=== PATIENT | female | born 1975 | race Two or more races ===

== ENCOUNTER 2018-03-03 21:33 | Emergency (ER) | payer SELFPAY ==
[2018-03-03] MEDS ORDERED: ACETAMINOPHEN 325 MG TABLET PO ONE (21:38)
--- NOTE | 2018-03-03 22:02 | RADIOLOGY REPORT (SQ) ---
EXAM DESCRIPTION: XR FOREARM 2 VIEWS COMPLETED DATE/TME: 03/03/2018 00:00 CLINICAL HISTORY: 42 years, Female, injury COMPARISON: EXAM DESCRIPTION: CLINICAL HISTORY: injury COMPARISON: None FINDINGS: 2 view(s) submitted. There is moderate angulation of fractures of the distal radius and ulna, which are mildly diastatic. No other fracture or dislocation. IMPRESSION: Radius and ulna fractures.. NUMBER OF VIEWS: TECHNIQUE: LIMITATIONS: None. FINDINGS: IMPRESSION: 2010 [facility] Radiology [facility]- All Rights Reserved
[2018-03-03] MEDS ORDERED: MORPHINE SULFATE 10 MG/ML INJ IV PRN (22:10)
[2018-03-03] MEDS ORDERED: PROPOFOL INJ 200 MG/20 ML VIAL IV ONE ×2 (22:10→23:48)
[2018-03-03] MEDS ORDERED: ONDANSETRON HCL INJ/PF 4 MG/2 ML SDV IV ONE (22:10)
[2018-03-03] MEDS ORDERED: FENTANYL CITRATE INJ/PF 100 MCG/2 ML AMPUL IV PRN (22:31)
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
[2018-03-03] MEDS ORDERED: KETAMINE HCL INJ 500 MG/10 ML VIAL ONE (23:31)
[2018-03-03] MEDS ORDERED: PROPOFOL 0 MG/0 ML INFUS..BTL IV ONE (23:31)
[2018-03-04] MEDS ORDERED: CEFAZOLIN 2 GM/D5W RTU 2 GM/50 ML RTUPB IV ONE
[2018-03-04] MEDS ORDERED: ONDANSETRON ODT 4 MG TAB (6 TAB/ER DISP) PO PRN (00:24)
[2018-03-04] MEDS ORDERED: HYDROCODONE/ACETAMINOPHEN 5-325 MG (6 TAB/ER DISP) PO PRN (00:24)
[2018-03-04 03:31] VITALS: BP 126/96
--- NOTE | 2018-03-04 08:02 | RADIOLOGY REPORT (SQ) ---
EXAM DESCRIPTION: FOREARM LEFT COMPLETED DATE/TIME: 03/04/2018 12:15 am REASON FOR STUDY: CR LT FOREARM COMPARISON: 03/03/2018 FLUOROSCOPY TIME: 90 seconds 5 images saved to PACS. TECHNIQUE: Intra-operative images acquired during surgical procedure to evaluate progress. NUMBER OF IMAGES: 5 image LIMITATIONS: None. FINDINGS: Fluoroscopic images were obtained during reduction of fractures of the distal ulna and rad ius. The final films obtained demonstrate an overlying cast. IMPRESSION: IMAGE(S) OBTAINED DURING PROCEDURE. COMMENT: Quality ID [id number]: Final reports for procedures using fluoroscopy that document radiation exp osure indices, or exposure time and number of fluorographic images (if radiation exposure indices are not available) Please consult full operative report of the attending physician for description of the procedure. TECHNICAL DOCUMENTATION: JOB ID: [id number] [employer]- All Rights Reserved Reading location - IP/workstation name: [email or web address]
--- NOTE | 2018-03-04 08:02 | RADIOLOGY REPORT (SQ) ---
EXAM DESCRIPTION: NO CHG FLUORO COMPLETE DATE/TIME: 03/04/2018 12:15 am REASON FOR STUDY: CR LT FOREARM FINDINGS: Please see combined report for performance of procedure and radiologic supervision and int erpretation. IMPRESSION: Please see combined report for performance of procedure and radiologic supervision and i nterpretation. Reading location - IP/workstation name: [email or web address]
== END 2018-03-04 03:34 | disposition home or self-care (01) ==
LOC: ER 21:33
PROC: 0PSJXZZ Reposition Left Radius, External Approach (ICD-10-PCS; principal; 2018-03-03)
PROC: 0PSLXZZ Reposition Left Ulna, External Approach (ICD-10-PCS; 2018-03-03)
DX: S52.92XA Unspecified fracture of left forearm, initial encounter for closed fracture (principal); Y04.8XXA Assault by other bodily force, initial encounter
CPT/HCPCS: 99284; 99152; 73090 ×2; 25565; J3010; J3490; J2405; J2704; J0690

== ENCOUNTER 2018-03-04 11:55 | Day surgery (SDC) | payer SELFPAY ==
[~2018-03-04 11:55] MED LIST: SUCCINYLCHOLINE CHLORIDE INJ 200 MG/10 ML VIAL ONE
[2018-03-04] MEDS ORDERED: CEFAZOLIN 2 GM/D5W RTU 2 GM/50 ML RTUPB IV PRN (11:57)
[2018-03-04] MEDS ORDERED: CEFAZOLIN 2 GM/D5W RTU 2 GM/50 ML RTUPB IV ONE (12:09)
--- NOTE | 2018-03-04 12:32 | RADIOLOGY REPORT (SQ) ---
EXAM DESCRIPTION: CHEST SINGLE VIEW COMPLETED DATE/TIME: 03/04/2018 12:24 pm REASON FOR STUDY: PREOP COMPARISON: None. EXAM PARAMETERS: NUMBER OF VIEWS: One view. TECHNIQUE: Single frontal radiographic view of the chest acquired. RADIATION DOSE: NA LIMITATIONS: None. FINDINGS: LUNGS AND PLEURA: No opacities, masses or pneumothorax. No pleural effusion. MEDIASTINUM AND HILAR STRUCTURES: No masses. Contour normal. HEART AND VASCULAR STRUCTURES: Heart normal in size. Normal vasculature. BONES: No acute findings. HARDWARE: None in the chest. OTHER: No other significant finding. IMPRESSION: NO ACUTE RADIOGRAPHIC FINDING IN THE CHEST. TECHNICAL DOCUMENTATION: JOB ID: [id number] [employer]- All Rights Reserved Reading location - IP/workstation name: [email or web address]
[2018-03-04 12:36] LABS: APPEARANCE,URINE SLIGHTLY-CLOUDY; BILIRUBIN,URINE NEGATIVE (NEGATIVE); COLOR,URINE STRAW; GLUCOSE, URINE NEGATIVE (NEGATIVE); KETONES,URINE NEGATIVE (NEGATIVE); LEUKOCYTE ESTERASE,URINE NEGATIVE (NEGATIVE); NITRITE,URINE NEGATIVE (NEGATIVE); PROTEIN,URINE NEGATIVE (NEGATIVE); URINE SPECIFIC GRAVITY 1.005; UROBILINOGEN,URINE NEGATIVE mg/dL (<2.0)
[2018-03-04] MEDS ORDERED: ALBUTEROL SULFATE 0.083% NEB 2.5 MG/3 ML AMPUL NEB ONE (12:58)
[2018-03-04 13:00] LABS: HEMOGLOBIN 12.9 g/dL (12.0-15.5); MEAN CORPUSCULAR HEMOGLOBIN 32.5 pg (27.0-33.4); MEAN CORPUSCULAR HGB CONC 34.9 g/dL (32.0-36.0); MEAN CORPUSCULAR VOLUME 93 fl (80-97); PLATELET COUNT 390 10^3/uL (150-450); RED BLOOD COUNT 3.97 10^6/uL (3.72-5.28); RED CELL DISTRIBUTION WIDTH 13.8 % (11.5-14.0); WHITE BLOOD COUNT 16.4 10^3/uL (4.0-10.5)
[2018-03-04] MEDS ORDERED: FENTANYL CITRATE INJ/PF 250 MCG/5 ML AMPULE ONE (13:01)
[2018-03-04] MEDS ORDERED: FENTANYL CITRATE INJ/PF 100 MCG/2 ML AMPUL ONE ×2 (13:01→15:58)
[2018-03-04] MEDS ORDERED: ONDANSETRON HCL INJ/PF 4 MG/2 ML SDV ONE (13:02)
[2018-03-04] MEDS ORDERED: PROPOFOL INJ 200 MG/20 ML VIAL IV ONE (13:02)
[2018-03-04] MEDS ORDERED: MIDAZOLAM 2 MG/2 ML INJ ONE (13:02)
[2018-03-04] MEDS ORDERED: ACETAMINOPHEN 1,000 MG/100 ML RTUPB IV ONE (13:03)
[2018-03-04] MEDS ORDERED: DEXAMETHASONE SOD PHOSPHATE INJ 4 MG/1 ML VIAL ONE (13:08)
[2018-03-04] MEDS ORDERED: SCOPOLAMINE HYDROBROMIDE 1.5 MG PATCH.TD72 ONE (13:19)
[2018-03-04 13:31] LABS: ANION GAP 10 (5-19); BLOOD UREA NITROGEN 8 mg/dL (7-20); CALCIUM 8.9 mg/dL (8.4-10.2); CARBON DIOXIDE 19 mmol/L (22-30); CHLORIDE 109 mmol/L (98-107); GLUCOSE 107 mg/dL (75-110); POTASSIUM 3.8 mmol/L (3.6-5.0); SODIUM 137.8 mmol/L (137-145)
[2018-03-04] MEDS ORDERED: FENTANYL CITRATE INJ/PF 100 MCG/2 ML AMPUL IV PRN ×3 (13:49)
[2018-03-04] MEDS ORDERED: DIPHENHYDRAMINE HCL 50 MG/ML VIAL IV PRN (13:49)
[2018-03-04] MEDS ORDERED: PROMETHAZINE HCL INJ 25 MG/1 ML VIAL IV PRN ×2 (13:49)
[2018-03-04] MEDS ORDERED: ONDANSETRON HCL INJ/PF 4 MG/2 ML SDV IV PRN (13:49)
[2018-03-04] MEDS ORDERED: MEPERIDINE HCL/PF INJ 25 MG/1 ML DISP.SYRIN IV PRN (13:49)
[2018-03-04] MEDS ORDERED: RINGERS SOLUTION,LACTATED 1,000 ML IV ONE (14:00)
[2018-03-04] MEDS ORDERED: HYDROMORPHONE HCL INJ/PF 2 MG/ML AMPULE IV ONE (14:10)
--- NOTE | 2018-03-04 15:12 | Operative Report ---
Operative Report DATE OF SURGERY: 03/04/18 PREOPERATIVE DIAGNOSIS: Displaced left radial and ulnar shaft fractures POSTOPERATIVE DIAGNOSIS: Same OPERATION: Open reduction internal fixation of left radius and ulna SURGEON: NINA WALKER ANESTHESIA: GA TISSUE REMOVED OR ALTERED: None COMPLICATIONS: None ESTIMATED BLOOD LOSS: Less than 20 mL INTRAOPERATIVE FINDINGS: As above PROCEDURE: Patient was brought to the operating room after receiving preoperative antibiotics in the holding area. After receiving general anesthetic a arm tourniquet was applied. The left upper extremity was prepped and draped in a normal sterile surgical fashion. Timeout was done identifying the left forearm as the correct site. Esmarch was used to exsanguinate the extremity and the tourniquet was inflated at 280 mmHg. A straight longitudinal incision was done right over the fracture of the ulna and expose both fragments both distally and proximally was able to make sure that the ends lined up and we lifted the tissue with periosteal elevators. Once I was able to reduce the fragment I was able to place a 6 hole plate and hold lobster claws to hold the reduction and the position of the plate. I was able to drill measure and placed a distal screw and then I repeat this process with the proximal screw. Once this was secured and the proper A-O technique was done the fracture compressed portions that they were it was opposed. Butterfly fragment was reduced. Appropriate proceeded to then fill out my remaining holes by drilling measuring and placing my screws manually. C-arm pictures were taken to show the reduction placement of the plate and the screw lengths. Also satisfied a Ray-Radhames was docked in sterile water and placed over the ulnar incision and then we placed the arm in supination where we then did a standard volar approach of Richie to expose the fracture fragments of the radius. Retractors were placed both medial lateral to the bone to protect the neurovascular structures and tendons. Periosteal elevator was used to the released the tissues around the fracture site and with a lobster claws was able to successfully reduce her fragments. The fracture was a transverse fragment and it keyed in nicely. Used a 7 hole plate which allowed me then to reduce the plate to the radius and used a lobster claw to held the reduction. I used the same AO technique by placing screws proximally distally and compressing the the fracture nicely. I used the C-arm to show my reduction location and length of screws and plates. Once the procedure was completed then I used bulb irrigation to irrigate both wounds. I reattached the fascial layer of the ulnar side and the used 2-0 Vicryl to approximate the dermal tissue. Used florin for skin. On the volar side we adjusted 2-0 Vicryl for approximating the dermis and florin for skin. Xeroform 4 x 4 dressing was applied followed by 4 x 4 dressings and soft roll. A 3 inch Ortho- Glass was used and secured for support and then soft roll to overwrap it. Once the glass had hardened and we released the tourniquet and remove the dressing and extubated the patient. Patient was transferred to PACU in a stable condition
[2018-03-04] MEDS ORDERED: OXYCODONE-ACETAMINOPHEN 5-325 MG TABLET PO PRN ×2 (15:17)
--- NOTE | 2018-03-04 15:17 | Discharge Summary ---
Discharge Summary (SDC) - Discharge Final Diagnosis: ORIF of left both bone forearm fracture Date of Surgery: 03/04/18 Discharge Date: 03/04/18 Condition: Good Treatment or Instructions: Keep the splint and dressing dry clean and intact until follow-up in 2 weeks Nonweightbearing of the left upper extremity. Sling as needed. Follow-up sooner if any fevers or chills or drainage or excess bleeding. Prescriptions: Ondansetron HCl [Zofran 4 mg Tablet] 1 - 2 tab PO Q6HP PRN #20 tablet PRN Reason: Oxycodone HCl/Acetaminophen [Percocet 5-325 mg Tablet] 1 - 2 tab PO ASDIR PRN # 40 tablet PRN Reason: Referrals: TU MADRID PA-C [Primary Care Provider] - Discharge Diet: As Tolerated Respiratory Treatments at Home: Deep Breathing/Coughing Discharge Activity: No Driving, No Lifting/Push/Pulling, Slowly Increase Activity, Other - Keep left upper extremity iced and elevated when not ambulating. Home Care Assistance: None Needed Report the Following to Your Physician Immediately: Shortness of Breath, Vomiting, Increase in Pain, Yellow Skin, Fever over 101 Degrees, Unusual Bleeding, Redness, Swelling, Warmth, Increased Soreness, Drainage-Yellow, Drainage-Peres, Drainage-Green, Drainage-Foul Smelling
[2018-03-04] MEDS ORDERED: LIDOCAINE 2%/EPINEPHRINE INJ 20 ML VIAL ONE (15:34)
[2018-03-04] MEDS ORDERED: ROPIVACAINE HCL 0.5% INJ/PF (5 MG/1 ML) 30 ML SDV ONE (15:34)
[2018-03-04] MEDS ORDERED: LIDOCAINE 2% INJ-PF (20 MG/ML) 10 ML AMPUL ONE (15:35)
--- NOTE | 2018-03-04 15:50 | RADIOLOGY REPORT (SQ) ---
EXAM DESCRIPTION: FOREARM LEFT; NO CHG FLUORO COMPLETED DATE/TIME: 03/04/2018 3:09 pm REASON FOR STUDY: ORIF LEFT RADIUS AND ULNA COMPARISON: 03/03/2018 FLUOROSCOPY TIME: 0.3 minutes 3 C-arm images saved to PACS. TECHNIQUE: Intra-operative images acquired during surgical procedure to evaluate progress. NUMBER OF IMAGES: 3 digital C-arm images LIMITATIONS: None. FINDINGS: 3 digital C-arm images during ORIF left forearm fractures with good alignment. Please see the operative report for further detail IMPRESSION: Intra procedural imaging and fluoro COMMENT: Quality ID 145: Final reports for procedures using fluoroscopy that document radiation exp osure indices, or exposure time and number of fluorographic images (if radiation exposure indices are not available) Please consult full operative report of the attending physician for description of the procedure. TECHNICAL DOCUMENTATION: JOB ID: [id number] [employer]- All Rights Reserved Reading location - IP/workstation name: [email or web address]
--- NOTE | 2018-03-04 15:51 | RADIOLOGY REPORT (SQ) ---
EXAM DESCRIPTION: FOREARM LEFT; NO CHG FLUORO COMPLETED DATE/TIME: 03/04/2018 3:09 pm REASON FOR STUDY: ORIF LEFT RADIUS AND ULNA COMPARISON: 03/03/2018 FLUOROSCOPY TIME: 0.3 minutes 3 C-arm images saved to PACS. TECHNIQUE: Intra-operative images acquired during surgical procedure to evaluate progress. NUMBER OF IMAGES: 3 digital C-arm images LIMITATIONS: None. FINDINGS: 3 digital C-arm images during ORIF left forearm fractures with good alignment. Please see the operative report for further detail IMPRESSION: Intra procedural imaging and fluoro COMMENT: Quality ID 145: Final reports for procedures using fluoroscopy that document radiation exp osure indices, or exposure time and number of fluorographic images (if radiation exposure indices are not available) Please consult full operative report of the attending physician for description of the procedure. TECHNICAL DOCUMENTATION: JOB ID: [id number] [employer]- All Rights Reserved Reading location - IP/workstation name: [email or web address]
[2018-03-04] MEDS ORDERED: KETOROLAC TROMETHAMINE INJ/PF 30 MG/1 ML SDV ONE (15:57)
[2018-03-04] MEDS ORDERED: HYDROMORPHONE HCL INJ/PF 2 MG/ML AMPULE ONE (16:29)
[2018-03-04] MEDS ORDERED: OXYCODONE-ACETAMINOPHEN 5-325 MG TABLET ONE (17:12)
[2018-03-04 18:27] VITALS: BP 142/93
--- NOTE | 2018-03-04 22:38 | EKG REPORT ---
SEVERITY:- NORMAL ECG - SINUS RHYTHM : Confirmed by: Indira Constantino MD 04-Mar-2018 22:37:42
== END 2018-03-04 18:25 | disposition home or self-care (01) ==
LOC: OROUT 11:55
PROVIDERS: ATTEND Orthopaedic Surgery
DX: S52.302A Unspecified fracture of shaft of left radius, initial encounter for closed fracture (principal); S52.202A Unspecified fracture of shaft of left ulna, initial encounter for closed fracture; W19.XXXA Unspecified fall, initial encounter; F17.210 Nicotine dependence, cigarettes, uncomplicated; Z88.5 Allergy status to narcotic agent
CPT/HCPCS: 36415; 85027; 81025; 80048; 81001; 71045; 73090; 93005; 93010; 25575; C1713 ×2; J2795; J2250; J1100; J3010; J3490 ×2; J1885; J1170; J0330; J2405; J2704; J0690; J0131; 01830

== ENCOUNTER 2020-05-05 00:12 | Emergency (ER) | payer SELFPAY ==
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
[2020-05-05] MEDS ORDERED: HYDROCODONE/ACETAMINOPHEN 5-325 MG TABLET PO ONE (00:56)
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
--- NOTE | 2020-05-05 01:50 | RADIOLOGY REPORT (SQ) ---
EXAM DESCRIPTION: XR SHOULDER 2 OR MORE VIEWS COMPLETED DATE/TME: 05/05/2020 01:28 CLINICAL HISTORY: 45 years, Female, right shoulder/arm injury COMPARISON: None. NUMBER OF VIEWS: 2 TECHNIQUE: 2 view right shoulder LIMITATIONS: None. FINDINGS: Comminuted, mildly displaced proximal head and neck humeral fracture. No dislocation. IMPRESSION: Fracture deformity of the proximal humerus as above copyright 2010 [employer]- All Rights Reserved
[2020-05-05] MEDS ORDERED: OXYCODONE HCL IR 5 MG TABLET PO ONE (01:54)
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
[2020-05-05] MEDS ORDERED: ONDANSETRON ODT 4 MG TAB (6 TAB/ER DISP) PO PRN (02:04)
[2020-05-05] MEDS ORDERED: HYDROCODONE/ACETAMINOPHEN 5-325 MG (6 TAB/ER DISP) PO PRN (02:27)
[2020-05-05 02:34] VITALS: BP 133/84
== END 2020-05-05 02:32 | disposition home or self-care (01) ==
LOC: ER 00:12
DX: S49.91XA Unspecified injury of right shoulder and upper arm, initial encounter (principal); S42.291A Other displaced fracture of upper end of right humerus, initial encounter for closed fracture; W51.XXXA Accidental striking against or bumped into by another person, initial encounter; F17.200 Nicotine dependence, unspecified, uncomplicated; Z88.6 Allergy status to analgesic agent
CPT/HCPCS: 99284

== ENCOUNTER → 2020-05-10 | Outpatient (CLI) | payer SELFPAY ==
--- NOTE | 2020-05-10 12:34 | RADIOLOGY REPORT (SQ) ---
EXAM DESCRIPTION: CT RT UPPER EXTREMITY WITHOUT IMAGES COMPLETED DATE/TIME: 05/10/2020 11:13 am REASON FOR STUDY: (S42.301A)UNSP FRACTURE OF SHAFT OF HUMERUS, RIGHT ARM, INIT S42.301A UNSP FRACTU RE OF SHAFT OF HUMERUS, RIGHT ARM, INIT COMPARISON: None. EXAM PARAMETERS: TECHNIQUE:Axial imaging performed through the right shoulder with reformatted coron al and sagittal imaging windowed for bone and soft tissues. Images saved to PACS. 3D IMAGING: Were 3D images as MIP, SSD, or volume rendering performed at the work station? Yes All CT scanners at this facility use dose modulation, iterative reconstruction, and/or weight based d osing when appropriate to reduce radiation dose to as low as reasonably achievable (ALARA). [facility]: Dose Right [facility]: SureCare [facility]: Dose Right [facility]: Teradose 4D [facility]: Smart HipSwap RADIATION DOSE: CT Rad equipment meets quality standard of care and radiation dose reduction techniqu es were employed. CTDIvol: 19.4 mGy. DLP: 469 mGy-cm. mGy. LIMITATIONS: None. FINDINGS: SOFT TISSUES: No obvious swelling or foreign body. BONES: There is a comminuted fracture of the humeral head/neck. There is slight medial rotation of t he humeral head in relation to the humerus. MINERALIZATION: Normal. OTHER: No other significant finding. IMPRESSION: Comminuted fracture of the humeral head/neck. Images are available for review. 3D imag es are available for review. TECHNICAL DOCUMENTATION: JOB ID: [id number] [facility] [id number]: Final reports with documentation of one or more dose reduction techniques (e.g., Automate d exposure control, adjustment of the mA and/or kV according to patient size, use of iterative recons truction technique) 2010 [employer]- All Rights Reserved Reading location - IP/workstation name: [email or web address]
== END ==
LOC: RAD 10:52
PROVIDERS: ATTEND Orthopaedic Surgery
DX: S42.301A Unspecified fracture of shaft of humerus, right arm, initial encounter for closed fracture (principal); X58.XXXA Exposure to other specified factors, initial encounter

== ENCOUNTER → 2020-05-28 | Day surgery (SDC) | payer SELFPAY ==
[~2020-05-28] MED LIST changes: +BUPIVACAINE HCL 0.5 % INJ/PF 30 ML SDV ONE; +CEFAZOLIN 2 GM/D5W RTU 2 GM/50 ML RTUPB IV ONE; +DEXAMETHASONE SOD PHOS INJ 10 MG/1 ML VIAL ONE; +DEXAMETHASONE SOD PHOSPHATE INJ 4 MG/1 ML VIAL ONE; +DIPHENHYDRAMINE HCL 50 MG/ML VIAL IV PRN; +DIPHENHYDRAMINE HCL 50 MG/ML VIAL ONE; +EPHEDRINE SULFATE INJ 50 MG/1 ML AMPULE ONE; +FENTANYL CITRATE INJ/PF 100 MCG/2 ML AMPUL IV PRN; +FENTANYL CITRATE INJ/PF 100 MCG/2 ML AMPUL ONE; +GLYCOPYRROLATE 1 MG/5 ML VIAL ONE; +KETOROLAC TROMETHAMINE 60 MG/2 ML SDV ONE; +LIDOCAINE 2% INJ (20 MG/ML) 20 ML MDV ONE; +MEPERIDINE HCL/PF INJ 25 MG/1 ML DISP.SYRIN IV PRN; +METOCLOPRAMIDE HCL INJ/PF 10 MG/2 ML SDV ONE; +MIDAZOLAM 2 MG/2 ML INJ ONE; +NEOSTIGMINE METHYLSULFATE 10 MG/10 ML VIAL ONE; +ONDANSETRON HCL INJ/PF 4 MG/2 ML SDV IV ONE; +ONDANSETRON HCL INJ/PF 4 MG/2 ML SDV ONE; +OXYCODONE-ACETAMINOPHEN 5-325 MG TABLET PO PRN; +PHENYLEPHRINE HCL INJ/PF 10 MG/1 ML SDV ONE; +PROMETHAZINE HCL INJ 25 MG/1 ML VIAL IV PRN; +PROPOFOL INJ 200 MG/20 ML VIAL IV ONE; +ROCURONIUM BROMIDE INJ 50 MG/5 ML VIAL IV ONE; +ROPIVACAINE HCL 0.5% INJ/PF (5 MG/1 ML) 30 ML SDV ONE; +VANCOMYCIN HCL INJ 1000 MG VIAL ONE
[2020-05-28 14:47] LABS: AMORPHOUS SEDIMENT,URINE TRACE /HPF; APPEARANCE,URINE SLIGHTLY-CLOUDY; BILIRUBIN,URINE NEGATIVE (NEGATIVE); COLOR,URINE YELLOW; GLUCOSE, URINE NEGATIVE (NEGATIVE); KETONES,URINE 20 mg/dL (NEGATIVE); LEUKOCYTE ESTERASE,URINE NEGATIVE (NEGATIVE); NITRITE,URINE NEGATIVE (NEGATIVE); PROTEIN,URINE NEGATIVE (NEGATIVE); URINE SPECIFIC GRAVITY 1.015
[2020-05-28 14:51] LABS: HEMOGLOBIN 13.2 g/dL (12.0-15.5); MEAN CORPUSCULAR HEMOGLOBIN 31.5 pg (27.0-33.4); MEAN CORPUSCULAR HGB CONC 34.6 g/dL (32.0-36.0); MEAN CORPUSCULAR VOLUME 91 fl (80-97); PLATELET COUNT 460 10^3/uL (150-450); RED BLOOD COUNT 4.18 10^6/uL (3.72-5.28); WHITE BLOOD COUNT 10.1 10^3/uL (4.0-10.5)
[2020-05-28 15:14] LABS: ANION GAP 6 (5-19); BLOOD UREA NITROGEN 9 mg/dL (7-20); CALCIUM 9.3 mg/dL (8.4-10.2); CARBON DIOXIDE 26 mmol/L (22-30); CHLORIDE 105 mmol/L (98-107); GLUCOSE 92 mg/dL (75-110); POTASSIUM 4.1 mmol/L (3.6-5.0)
--- NOTE | 2020-05-28 19:16 | Discharge Summary ---
Discharge Summary (SDC) - Discharge Final Diagnosis: Right proximal humerus fracture Date of Surgery: 05/28/20 Discharge Date: 05/28/20 Condition: Good Treatment or Instructions: Schedule Follow Up w/ Dr. Ap Bonilla @ [facility] to be seen in 10-14 days or as scheduled [place]: [place]: [place]: May remove dressing on postop day #3, keep incision covered and dry. Cryocuff to shoulder May begin pendulum exercises along w/ hand, wrist and elbow range of motion 4x per day or as tolerated. May remove sling for hygiene purposes otherwise continue it at all times. Stool softener of choice when on pain medication. USE OF IYCD-VFE-DGTOCIZ IBUPROFEN: Ibuprofen (Advil, Nuprin, Medipren, Motrin IB) is a medication for fever and pain control. In addition, it has anti- inflammatory effects which may be beneficial, especially in the treatment of injuries. It's best to take ibuprofen with food. Persons with ulcer disease or allergy to aspirin should notify their physician of this before taking ibuprofen. Ibuprofen can be given every four to six hours, for a total of four doses daily. Age Pain or fever dose Antiinflammatory dose 6-8 yr 200 mg (1 tab) 200 mg (1 tab) 9-11 yr 200 mg (1 tab) 200-400 mg (1-2 tab) 11-14 yr 200-400 mg (1-2 tab) 400 mg (2 tab) 15-adult 400 mg (2 tab) 600 mg (3 tab) ORAL NARCOTIC MEDICATION: You have been given a prescription for pain control. This medication is a narcotic. It's best taken with food, as nausea can result if taken on an empty stomach. Don't operate machinery or drive within six hours of taking this medica tion. Do not combine this medicine with alcohol, or with any medication which can cause sedation (such as cold tablets or sleeping pills) unless you get permission from the physician. Narcotics tend to cause constipation. If possible, drink plenty of fluids and eat a diet high in fiber and fruits. Please be aware that prescription narcotics also have the potential for abuse. People become addicted to these medications because of the general sense of wellbeing that they induce. This feeling along with a significant reduction in tension, anxiety, and aggression provides a stimulating seductive quality to these drugs. Once your pain is under control, we encourage you to discard your unused narcotics. Prescriptions: Cyclobenzaprine HCl [Flexeril 10 mg Tablet] 10 mg PO TIDP PRN #25 tab PRN Reason: Oxycodone HCl [Oxycontin Sr 10 mg Tablet] 10 mg PO BID #12 tab.sr.12h Oxycodone HCl/Acetaminophen [Percocet 5-325 mg Tablet] 1 tab PO ASDIR PRN #25 tab PRN Reason: Referrals: TU MADRID PA-C [Primary Care Provider] - Discharge Diet: As Tolerated Respiratory Treatments at Home: Deep Breathing/Coughing, Incentive Spirometer
--- NOTE | 2020-05-28 19:24 | Operative Report ---
Operative Report DATE OF SURGERY: 05/28/20 PREOPERATIVE DIAGNOSIS: Right Proximal Humerus Fracture POSTOPERATIVE DIAGNOSIS: Same OPERATION: ORIF Right Proximal Humerus Fracture SURGEON: FOX BRITT 1ST CONTROLLER REPAIRER AND TESTER: AUSTIN LINDSAY ANESTHESIA: GA COMPLICATIONS: None ESTIMATED BLOOD LOSS: 125 cc PROCEDURE: Indication for above procedure: 45-year-old female who sustained a fall onto the right upper extremity approximately 3 weeks ago. Patient was seen in our office at which point x-rays demonstrated comminuted intra-articular proximal humerus fracture CT scan was done confirming articular nature and displacement given the articular nature and displacement of the fracture decision was made to proceed with operative intervention. Risk and benefits of the surgical procedure were explained patient verbalized understanding consented for surgery procedure. Procedure In Detail: Patient was seen and evaluated in the preoperative holding area. The RIGHT upper extremity was initialized and marked. Patient received 2g of Ancef IV for bacterial prophylaxis. Patient was taken back to the operative room where t ransferred to the operative table and placed under general anesthesia. Once they were adequately anesthetized patient placed in the beachchair position. Cervical spine was placed in neutral position all bony prominences were padded including nonoperative upper extremity and bilateral lower extremity. A surgical team debriefing was performed ensuring all instrumentation was available, the surgical procedure was discussed with possible concerns reviewed. The upper extremity was prepped with ChloraPrep draped in a sterile fashion. A timeout was done identifying correct patient, procedure and extremity everyone in attendance agree with this and verbalized no concerns. Longitudinal skin incision was made along the deltopectoral interval. Blunt dissection was performed. Cephalic vein was identified and retracted. Small medial perforators were coagulated with bipolar cautery. The clavicle pectoralis fascia was then incised to expose the proximal humerus. Biceps tendon was identified and tracked proximally within the rotator interval. Due to the intra-articular nature of the fracture and need to expose articular surface the rotator interval was released. The greater and lesser tuberosities were tagged with 2-0 FiberWire at the musculotendinous junction. Osteoclasis was performed to the anterior fragment. Under direct visualization this fragment was then reduced and held with a K wire provisionally. 4.0 mm fully threaded cancellous screws with a washer was then placed perpendicular to the fracture to reduce the articular surface. Once the articular surface was reduced it was inspected under direct visualization with palpation to ensure adequate fixation. The Kyrie proximal humerus plate was then provisionally secured with K wires AP and lateral projection were obtained confirming appropriate placement of the plate. Once satisfied with the plate position it was originally brought down to bone with a fully threaded cancellous screw. The remaining screws were then drilled to but not through the articular surface and approximately 4 mm of screw length was subtracted to ensure it was not violating the subchondral bone. Locking screws were then placed to further secure the proximal humerus. A elevator was then placed at the head neck junction to reduce the fracture. Fixation was then obtained into the humeral shaft with a bicortical screw at the oblong hole which firmly brought the plate down to bone. An additional bicortical screw was then placed in a static hole. Fixation was then completed proximally with a bicortical locking screw. Unfortunately once the plate was brought down to bone the prior oblong cortex screw did not provide fixation and thus was removed. Finally the kickstand screw along the medial calcar was placed and locked into position. Final C arm fluoroscopy was then obtained which demonstrated acceptable reduction of the fracture and fixation no evidence of intra-articular screw penetration throughout multiple views including live rotation and oblique views. Wound was copiously irrigated with normal saline. Biceps was released and biceps tenodesis was performed within the soft tissues proximally. The rotator interval was closed with interrupted 2-0 FiberWire suture. The greater and lesser tuberosity fragments were secured to the plate with 2-0 FiberWire suture. Vancomycin powder 1 g was placed within the wound. Deltopectoral interval was closed with interrupted 0 Vicryl suture. Subcutaneous tissues were closed with 3-0 Monocryl suture. Skin was closed running subcuticular 4-0 Monocryl reinforced with Dermabond and Steri-Strips. Patient was placed in a sling. Sponge counts, instrument counts, needle counts were correct. Patient was then awoken from anesthesia. Transferred from the operating room table to the operating room stretcher. There was no intraoperative complications patient tolerated procedure well stable to PACU. Postop plan: Patient will follow in the office in 2 weeks we will obtain shoulder radiographs excluding axillary view. Patient may begin elbow range of motion immediately.
[2020-05-28 20:40] VITALS: BP 124/78
--- NOTE | 2020-05-29 13:21 | RADIOLOGY REPORT (SQ) ---
EXAM DESCRIPTION: NO CHG FLUORO; HUMERUS RIGHT IMAGES COMPLETED DATE/TIME: 05/28/2020 7:32 pm REASON FOR STUDY: ORIF RT HUMERUS COMPARISON: None. FLUOROSCOPY TIME: 0.8 minutes 5 Images saved to PACS LIMITATIONS: None. PROCEDURE: ORIF right humerus FINDINGS: Images from fluoro document the procedure. IMPRESSION: ORIF right humerus. Refer to operative note for further information. COMMENT: PQRS 6045F: Fluoroscopy time of the procedure is documented in the report. TECHNICAL DOCUMENTATION: JOB ID: [id number] 2010 [employer]- All Rights Reserved Reading location - IP/workstation name: [email or web address]
--- NOTE | 2020-05-29 13:21 | RADIOLOGY REPORT (SQ) ---
EXAM DESCRIPTION: NO CHG FLUORO; HUMERUS RIGHT IMAGES COMPLETED DATE/TIME: 05/28/2020 7:32 pm REASON FOR STUDY: ORIF RT HUMERUS COMPARISON: None. FLUOROSCOPY TIME: 0.8 minutes 5 Images saved to PACS LIMITATIONS: None. PROCEDURE: ORIF right humerus FINDINGS: Images from fluoro document the procedure. IMPRESSION: ORIF right humerus. Refer to operative note for further information. COMMENT: PQRS 6045F: Fluoroscopy time of the procedure is documented in the report. TECHNICAL DOCUMENTATION: JOB ID: [id number] 2010 [employer]- All Rights Reserved Reading location - IP/workstation name: [email or web address]
== END ==
LOC: OROUT 13:26
PROVIDERS: ATTEND Orthopaedic Surgery
DX: S42.201A Unspecified fracture of upper end of right humerus, initial encounter for closed fracture (principal); W19.XXXA Unspecified fall, initial encounter; Z01.812 Encounter for preprocedural laboratory examination; Z20.828 Contact with and (suspected) exposure to other viral communicable diseases; Z79.899 Other long term (current) drug therapy; F17.210 Nicotine dependence, cigarettes, uncomplicated
CPT/HCPCS: 23615; 36415; 85027; 0241U ×4; 81025; 80048; 81001; 73060; J2795; J2250; J3490 ×2; J1100 ×2; J1885; J3010; J2765; J2405; J2704; J3370; J0690; C9803; J0330; J1200; J2370; J2710